=== PATIENT | male | born 1945 ===

== ENCOUNTER → 2019-10-26 | Outpatient (CLI) | payer BC ==
[~2019-10-26] MED LIST: ALLO300 PO; AMOX500 PO; ASCO1ER; ASPI81CH PO; ASPI81EC; ATEN25; ATEN50 PO; Bupropion Xl150 MG PO; CITA20; Cytotec200 MCG PO; DICL75ER PO; DICMIS75EC PO; Desyrel50 MG PO; ENOX40I SC; FINA5 PO; FISH1000; HYDACE5; HYDMOR2 PO; LISI20; Lisinopril2.5 MG PO; MAGNESIUM400 M1 PO; METCAR750; METF500 PO; MONT10T PO; MULVITMIND PO; OMEP20ER; OXYC10TA19 PO; POTCIT10 PO; PROM25 PO; Prilosec Otc20 MG PO; ROSU10TA PO; SIMV20; TAMS.4ER PO; Vitamin D400 UNI2 PO; WARF5 PO
[2019-10-26 14:46] LABS: Protein, Urine Quantitative 8.5 mg/dL (0.0-11.9)
[2019-10-26 14:50] LABS: Microalbumin, Urine Quant. <5.000 mg/L (0.000-20.000)
== END | disposition home or self-care (01) ==
LOC: LAB SHORT 09:10 → LAB 09:10 → LAB FUT 10-18 15:25
PROVIDERS: Internal Medicine Nephrology
DX: N18.3 Chronic kidney disease, stage 3 (moderate) (principal); D63.1 Anemia in chronic kidney disease; N25.81 Secondary hyperparathyroidism of renal origin; E55.9 Vitamin D deficiency, unspecified; E78.00 Pure hypercholesterolemia, unspecified; R76.9 Abnormal immunological finding in serum, unspecified; R94.5 Abnormal results of liver function studies; R94.6 Abnormal results of thyroid function studies
CPT/HCPCS: 81050; 82043; 82570; 84156

== ENCOUNTER 2023-12-12 23:40 | Emergency (ER) | payer OTHER ==
[~2023-12-12] VITALS: Ht 165.1 cm; Wt 81.7 kg
[2023-12-13 00:10] VITALS: BP 103/63
== END 2023-12-13 04:18 | disposition home or self-care (01) ==
LOC: ER 23:40
DX: S01.511A Laceration without foreign body of lip, initial encounter (principal); E11.9 Type 2 diabetes mellitus without complications; I48.91 Unspecified atrial fibrillation; W01.0XXA Fall on same level from slipping, tripping and stumbling without subsequent striking against object, initial encounter; Z88.5 Allergy status to narcotic agent; Z91.040 Latex allergy status; Z88.8 Allergy status to other drugs, medicaments and biological substances; Z79.82 Long term (current) use of aspirin; Z79.899 Other long term (current) drug therapy
CPT/HCPCS: 12011; 70450; 99283-25